=== PATIENT | female | born 2000 | race Caucasian/White ===

== ENCOUNTER 2023-02-05 08:40 | Emergency (ER) | payer SELFPAY ==
[~2023-02-05] VITALS: Ht 165.1 cm; Wt 60.0 kg
[2023-02-05 08:46] VITALS: BP 120/66; O2SAT 100
[2023-02-05 09:11] LABS: BASOPHILS % 0.9 % (0.0-2.0); EOSINOPHILS % 0.8 % (0.0-5.0); HEMATOCRIT. 29.5 % (36.0-48.0); HEMOGLOBIN. 8.9 g/dL (12.0-16.0); LYMPHOCYTES % 27.1 % (20.0-50.0); MEAN CORPUSCULAR HGB CONC 30.2 g/dL (31.0-37.0); MEAN CORPUSCULAR VOLUME 59.6 fL (81.0-99.0); MEAN PLATELET VOLUME 8.2 fl (7.4-10.4); MONOCYTES % 9.5 % (2.0-8.0); NEUTROPHILS % 61.7 % (40.0-76.0); PLATELET 343 x1000/uL (130-400); RED BLOOD CELL COUNT 4.96 mill/uL (4.2-5.4); RED CELL DISTRIBUTION WIDTH 18.8 % (11.6-14.6)
[2023-02-05 09:14] LABS: ADD RBC MORPHOLOGY YES; DIFFERENTIAL COMMENT 1
[2023-02-05 09:22] LABS: CHLORIDE 111 mEq/L (98-107); INDEX HEMOLYSI 1 (1-3); INDEX ICTERIC 1 (1-4); INDEX LIPEMIC 1 (1-3); POTASSIUM 3.4 mEq/L (3.5-5.1); SODIUM 138 mEq/L (136-145)
[2023-02-05 09:28] LABS: ALANINE AMINOTRANSFERASE 18 IU/L (13-61); ALBUMIN 3.6 g/dL (3.4-5.0); ASPARTATE AMINOTRANSFERASE 14 IU/L (15-37); BILIRUBIN TOTAL 0.5 mg/dL (0.1-1.0); CALCIUM 8.4 mg/dL (8.5-10.1); CARBON DIOXIDE 23 mEq/L (21-32); CREATININE 0.6 mg/dL (0.6-1.3); GLUCOSE 94 mg/dL (70-105); PROTEIN TOTAL 7.6 g/dL (6.0-8.3); UREA NITROGEN BLOOD 5 mg/dL (7-21)
[2023-02-05 09:36] LABS: INR 1.1; PROTHROMBIN TIME 11.5 sec (9.6-11.0)
[2023-02-05 09:41] LABS: HCG SCREEN NEGATIVE
[2023-02-05 12:05] LABS: CLARITY URINE CLOUDY (CLEAR); COLOR URINE YELLOW (YELLOW); GLUCOSE URINE NEGATIVE (NEGATIVE); KETONES URINE NEGATIVE (NEGATIVE); LEUKOCYTE ESTERASE URINE NEGATIVE (NEGATIVE); NITRITE URINE NEGATIVE (NEGATIVE); OCCULT BLOOD URINE NEGATIVE (NEGATIVE); PROTEIN URINE NEGATIVE (NEGATIVE); SPECIFIC GRAVITY URINE 1.013 (1.005-1.030)
[2023-02-05 12:07] LABS: SQUAMOUS EPITHELIAL CELL URINE 1+ /lpf (RARE/1+); YEAST URINE NONE SEEN
[2023-02-05 12:31] LABS: BACTERIA URINE 1+; MUCUS URINE 2+ /lpf (< = 2+); RBC URINE 0-2 /hpf (0-2)
[2023-02-05 13:09] LABS: ANISOCYTOSIS 2+; HYPOCHROMASIA 1+; MICROCYTOSIS 4+; PLATELET ESTIMATE NORMAL
[2023-02-05] MEDS ORDERED: IOHEXOL-300 100 ML BOTTLE ONE (13:13)
[2023-02-05 15:09] VITALS: PULSE 90; TEMP 98.6
== END 2023-02-05 15:12 | disposition home or self-care (01) ==
LOC: ER 08:40
DX: R10.31 Right lower quadrant pain (principal)
CPT/HCPCS: 80053; 81003; 81025; 84703; 83690; 85025; 85610; 36415; 74176; 74177; 76830; 76856; 99285; Q9967; Z7610

== ENCOUNTER 2023-02-07 09:13 | Inpatient (IN) | payer SELFPAY ==
[~2023-02-07] VITALS: Ht 160 cm; Wt 68.0 kg
[2023-02-07 09:39] LABS: BASOPHILS % 0.7 % (0.0-2.0); EOSINOPHILS % 0.1 % (0.0-5.0); HEMATOCRIT. 27.6 % (36.0-48.0); HEMOGLOBIN. 8.5 g/dL (12.0-16.0); LYMPHOCYTES % 21.8 % (20.0-50.0); MEAN CORPUSCULAR HEMOGLOBIN 18.1 pg (28.0-32.0); MEAN CORPUSCULAR HGB CONC 30.9 g/dL (31.0-37.0); MEAN CORPUSCULAR VOLUME 58.5 fL (81.0-99.0); MEAN PLATELET VOLUME 8.3 fl (7.4-10.4); MONOCYTES % 9.3 % (2.0-8.0); NEUTROPHILS % 68.1 % (40.0-76.0); PLATELET 338 x1000/uL (130-400); RED BLOOD CELL COUNT 4.71 mill/uL (4.2-5.4); RED CELL DISTRIBUTION WIDTH 19.3 % (11.6-14.6); WHITE BLOOD COUNT 7.6 x1000/uL (4.5-11.0)
[2023-02-07] MEDS ORDERED: MORPHINE SULFATE 4 MG/ML CPJ (NOT FOR IM USE) IV ONE (09:45)
[2023-02-07 09:47] LABS: CHLORIDE 110 mEq/L (98-107); INDEX HEMOLYSI 1 (1-3); INDEX ICTERIC 1 (1-4); INDEX LIPEMIC 1 (1-3); POTASSIUM 3.4 mEq/L (3.5-5.1); SODIUM 138 mEq/L (136-145)
[2023-02-07 09:52] LABS: HCG SCREEN NEGATIVE
[2023-02-07 09:54] LABS: ALANINE AMINOTRANSFERASE 18 IU/L (13-61); ALBUMIN 3.5 g/dL (3.4-5.0); ASPARTATE AMINOTRANSFERASE 12 IU/L (15-37); BILIRUBIN TOTAL 0.6 mg/dL (0.1-1.0); CALCIUM 8.7 mg/dL (8.5-10.1); CARBON DIOXIDE 24 mEq/L (21-32); CREATININE 0.5 mg/dL (0.6-1.3); GLUCOSE 96 mg/dL (70-105); PROTEIN TOTAL 7.5 g/dL (6.0-8.3); UREA NITROGEN BLOOD 4 mg/dL (7-21)
[2023-02-07 09:56] LABS: ADD RBC MORPHOLOGY YES; DIFFERENTIAL COMMENT 1
[2023-02-07] MEDS ORDERED: DIATR MEGLU/DIATRIZOATE SOLN 30ML ONE (10:31)
[2023-02-07] MEDS ORDERED: FAMOTIDINE 20MG/2ML VIAL IV ONE (11:00)
[2023-02-07] MEDS ORDERED: BUPIVACAINE HCL/PF 0.5% (5MG/ML) 10ML ONE (11:22)
[2023-02-07] MEDS ORDERED: SKIN ADHESIVE 0.7 GM EA TOP ONE (11:22)
[2023-02-07 11:25] LABS: ANISOCYTOSIS 1+; MICROCYTOSIS 3+; PLATELET ESTIMATE NORMAL
[2023-02-07] MEDS ORDERED: IOHEXOL-300 100 ML BOTTLE ONE (11:47)
[2023-02-07] MEDS ORDERED: ONDANSETRON HCL 4MG/2ML INJ IV PRN (22:15)
[2023-02-07] MEDS ORDERED: MORPHINE SULFATE 2 MG/ML CPJ (NOT FOR IM USE) IV PRN (22:15)
[2023-02-07] MEDS ORDERED: NALOXONE HCL 0.4MG/ML VIAL IV PRN (22:30)
[2023-02-07] MEDS ORDERED: DEXT 5% WATER + KCL 20MEQ/L 1,000 ML IV SCH (23:00)
[2023-02-07] MEDS ORDERED: DEXT 5%/0.45% NACL KCL 10MEQ/L 1,000 ML IV SCH (23:00)
[2023-02-07] MEDS: KCL IV SCH (23:45)
[2023-02-07] MEDS: DEXT IV SCH (23:45)
[2023-02-07] MEDS: NACL IV SCH (23:45)
[2023-02-08] VITALS: BP 107/46; PULSE 89; RESP 18; TEMP 97.9
[2023-02-08 00:35] LABS: BASOPHILS % 0.6 % (0.0-2.0); EOSINOPHILS % 0.2 % (0.0-5.0); HEMATOCRIT. 27.3 % (36.0-48.0); HEMOGLOBIN. 8.2 g/dL (12.0-16.0); LYMPHOCYTES % 17.8 % (20.0-50.0); MEAN CORPUSCULAR HEMOGLOBIN 17.8 pg (28.0-32.0); MEAN CORPUSCULAR HGB CONC 30.2 g/dL (31.0-37.0); MEAN PLATELET VOLUME 8.3 fl (7.4-10.4); MONOCYTES % 11.5 % (2.0-8.0); NEUTROPHILS % 69.9 % (40.0-76.0); PLATELET 326 x1000/uL (130-400); RED BLOOD CELL COUNT 4.62 mill/uL (4.2-5.4); RED CELL DISTRIBUTION WIDTH 19.1 % (11.6-14.6); WHITE BLOOD COUNT 7.1 x1000/uL (4.5-11.0)
[2023-02-08 00:43] LABS: DIFFERENTIAL COMMENT 1
[2023-02-08] MEDS: LEVOFLOXACIN 500MG TABLET PO SCH ×2 (00:45→10:58)
[2023-02-08 02:51] VITALS: BP 107/46; PULSE 89; RESP 18; TEMP 97.9
[2023-02-08 04:00] VITALS: BP 106/56; PULSE 88; RESP 18; TEMP 98.4
[2023-02-08 08:00] VITALS: BP 115/60; PULSE 89; RESP 20; TEMP 96.8
[2023-02-08] MEDS: NACL IV SCH (08:40)
[2023-02-08] MEDS: DEXT IV SCH (08:40)
[2023-02-08] MEDS: KCL IV SCH (08:40)
[2023-02-08] MEDS ORDERED: LEVO-65 MT (10:19)
[2023-02-08 15:02] VITALS: BP 105/51; PULSE 94; TEMP 96.8; O2SAT 100
== END 2023-02-08 15:29 | disposition home or self-care (01) | DRG 251 ==
LOC: ER 09:13 → 6EST 20:47
PROVIDERS: ADMIT Internal Medicine; ATTEND Internal Medicine
DX: R10.9 Unspecified abdominal pain (principal); K76.0 Fatty (change of) liver, not elsewhere classified; D64.9 Anemia, unspecified; E87.6 Hypokalemia; Z90.49 Acquired absence of other specified parts of digestive tract
CPT/HCPCS: 36415; 74177; 80053; 84703; 85025; 86850; 86900; 99285; J2270; J3490; J7060; Q9963; Q9967